=== PATIENT | male | born 1945 | race Caucasian/White ===

== ENCOUNTER 2018-01-09 18:56 | Inpatient (IN) ==
[2018-01-09] MEDS ORDERED: Naloxone 0.4 MG/ML INJ IM ONE (19:06)
[2018-01-09 19:19] LABS: Basophils % 0.2 %; Eosinophils # 0.1 K/mcL (0.0-0.6); Eosinophils % 0.4 %; Hematocrit 37.2 % (37.5-50.1); Immature Granulocytes % 0.4 % (0-4); Lymphocytes # 0.8 K/mcL (0.6-4.6); Lymphocytes % 4.9 %; Mean Corpuscular HGB Conc 32.3 g/dL (31.6-35.5); Mean Corpuscular Hemoglobin 31.3 pg (28.0-33.3); Mean Corpuscular Volume 96.9 fL (83.0-100.0); Mean Platelet Volume 10.2 fL (9.4-12.4); Monocytes # 1.3 K/mcL (0.0-1.3); Neutrophils # 14.4 K/mcL (1.6-8.9); Platelet Count 288 K/mcL (140-400); Red Blood Count 3.84 M/mcL (4.19-5.50); Red Cell Distribution Width 15.1 % (11.5-14.5); Segmented Neutrophils % 86.1 %
[2018-01-09] MEDS: 0.9 % Sodium Chloride 1,000 ML IVC SCH (19:22)
[2018-01-09 19:40] LABS: VBG HCO3 31 mEq/L (21-27); VBG PCO2 52 mmHg (41-51); VBG PH 7.39 pH Units (7.32-7.42); VBG PO2 30 mmHg (25-50)
--- NOTE | 2018-01-09 19:40 | Emergency Department Note ---
Disposition Clinical Impression: Altered mental status Qualifiers: Altered mental status type: somnolence Qualified Code(s): R40.0 - Somnolence Aspiration pneumonia of right upper lobe Qualifiers: Aspiration pneumonia type: unspecified Qualified Code(s): J69.0 - Pneumonitis due to inhalation of food and vomit Disposition: Transfer Short-Term Hosp Referrals: NONE,PCP [Non-Partnered Physician] - Time of Disposition: 22:35 Altered Mental Status HPI - General Time Seen by Provider: 01/09/18 19:03 Source: family Mode of arrival: private vehicle Limitations: altered mental status Nursing Notes Reviewed: Yes Vital Signs Reviewed: Yes - History of Present Illness HPI Narrative: PT DROPPED off at ambulance bay by family . indicates that at 2 pm he was standing at the refrigerator trying to get a glass of milk and nearly fell over forward. She noticed that his hand was tremulous. She did not notice that he was having a seizure or knees never had any seizures. She states that he had been sleeping most of the day and had been very sleepy which is not unusual but he was confused they had to help him back to bed when the squad was called and he refused care apparently according to his he was oriented and could answer all of the questions they ask including the president was so they indicated that they did not agree with his decision but that he had capacity to make the decision to refuse care He vomited after EMS left. And they got him back to bed and he slept much of the day but he was being monitored and continued to be minimally responsive so finally his family member was able to convince him to allow the family to bring him to the emergency department. 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 Records reveal that he is on oxycodone 5 mg 4 times a day when necessary. She states that he manages his own medications complaint: altered mental status Onset (ago): hour(s) Time: 14:00 Timing confirmed by: spouse Consistency of Symptoms: getting worse Context: cancer Associated symptoms: Reports: other (Patient cannot provide any of his own information but his states that he was not complaining of any pain) - Related Data Home Medications Medication Instructions Recorded Confirmed Metoprolol [Lopressor] 25 mg PO BID 08/23/15 01/09/18 Calcium Carbonate/Vitamin D3 1 each PO DAILY 09/21/17 01/09/18 [Calcium 600 + Vit D Tablet] Omeprazole [PriLOSEC] 40 mg PO DAILY 09/21/17 01/09/18 Ondansetron [Zofran] 8 mg PO Q8HR PRN 09/21/17 01/09/18 Fesoterodine Fumarate [Toviaz] 8 mg PO DAILY 01/09/18 01/09/18 Losartan Potassium [Cozaar] 100 mg PO DAILY 01/09/18 01/09/18 Morphine Sulfate [Arymo ER] 30 mg PO BID 01/09/18 01/09/18 Ranitidine HCl [Acid Structural Steel Worker Helper] 150 mg PO HS 01/09/18 01/09/18 Previous Rx's Medication Instructions Recorded Tamsulosin [Flomax] 0.4 mg PO DAILY #30 capsule 07/21/16 Allergies Allergy/AdvReac Type Severity Reaction Status Date / Time acetaminophen AdvReac Weakness Verified 01/09/18 19:42 [From Tylenol-Codeine] codeine AdvReac Weakness Verified 01/09/18 19:42 [From Tylenol-Codeine] Limitations: ROS unobtainable due to patients medical condition Past Medical History - Past Medical History Medical history: Reports: cancer, COPD, hypertension, other Psychiatric history: Reports: no psych history - Social History Smoking Status: Current every day smoker Smokeless Tobacco Status: No Alcohol use: Reports: none Drug use: Reports: none Physical Exam Constitutional: Patient is somnolent on the occasionally opens his eyes. Skin color is pale Appears well hydrated, body habitus thin. Nearly unresponsive Head: Normocephalic and atraumatic. External ear exam normal Nose: Nose normal. Mouth/Throat: Uvula is midline, oropharynx is clear and moist and mucous membranes are normal. Eyes: Conjunctivae nl, extraocular motions and lids are normal. Pupils are equal , round, and reactive to light. Neck: Normal range of motion and phonation normal. Neck supple. Cardiovascular: Normal rate, regular rhythm, normal heart sounds. Pulmonary/Chest: Initial pulse ox 89% without oxygen. 95% on 2 L nasal cannula No Respiratory distress. Respiratory Effort is shallow and breath sounds clear. Abdominal: Soft. Normal appearance and bowel sounds are normal. no masses, no guarding, no rebound Genitals: She had a depends in place which was saturated with urine and leaked throughout his clothing as well. I removed all of that wet clothing and found red rash slightly of the genital region but his testicles and venous do not have evidence of masses or gangrene or redness indicative of any abscess or infection Musculoskeletal: Good distal pulses. Soft compartments. Brisk cap refill. Extremities: Intact peripheral pulses. Slight bilateral ankle Edema. Extremity skin color pale, no calf tenderness or palpable cords. Neurological: GCS 10.Patient is drowsy but opens eyes to verbal and will attempt to follow commands such as opening his mouth. without evidence of obvious motor deficits Skin: Skin is warm, dry and intact. color is pale, cap refill is quick Psychiatric: Patient nonverbal at this time Course - Reevaluation(s) Reevaluation #1: Discussed case with family and they indicate patient is a DNR Time: 20:41 Reevaluation #2: Patient is much more awake. I explained the BiPAP to him which I ordered to improve his elevated CO2. I explained his diagnosis of pneumonia likely aspiration and the need for hospitalization. Family is agreeable to plan. Dr. Martinez has been paged at [phone] 2 determine if he or Dr. Street on-call or willing to take this patient for hospitalization here since he is a DNR in requires probably just stabilizing care. Time: 21:05 Reevaluation #3: disc case w/ dr Hicks and discussed the patient's case, CODE STATUS, vital signs, lab work, and chest x-ray findings. She is non profit job titles who indicates that she would like to call back to floor to see what nurses are working tonight she would also like me to leave the patient on BiPAP for one hour and reassess the CO2 the fourchette accept the patient for admission. Time: 21:20 - Consultations Consultation #1: off bipap now and repeat pulse ox is 95% on 2 l oxygen and capno is 34. disc case w/ dr Hicks who agrees w/ admission and we discussed the patient's labs and orders in detail which she has requested that I write as a courtesy for the patient's admission. I have agreed to do so. Time: 22:33 Vital Signs Temperature 98.9 F 01/09/18 19:31 Pulse Rate 88 01/09/18 19:31 Respiratory Rate 12 01/09/18 19:31 Blood Pressure 196/89 01/09/18 19:31 O2 Sat by Pulse Oximetry 89 01/09/18 19:31 Temperature 98.9 F 01/09/18 19:31 Pulse Rate 95 01/09/18 22:06 Respiratory Rate 16 01/09/18 22:06 Blood Pressure 139/27 01/09/18 22:06 O2 Sat by Pulse Oximetry 100 01/09/18 22:06 Oxygen Delivery Oxygen Delivery Bipap Altered Mental Status - MDM Narrative Medical decision making narrative: Patient's indicates now he actually is back to his usual baseline. She states that he sleeps most of the day every day. Unclear etiology of the episode. My nursing manager who took him out of the car did seem to think that he stiff so certainly seizure is a possibility. CT scan was ordered. My concern is that his symptoms are related to overmedication with opiates But he does have a history of metastatic carcinoma and brain metastases is certainly a possibility as well - Medical Records Medical records reviewed: Yes I reviewed the patient's medical records. - Lab Data Lab results reviewed: Yes I reviewed the patient's lab results. Result diagrams: 01/09/18 19:00 01/09/18 19:00 Lab Results 01/09/18 01/09/18 01/09/18 Range/Units 19:00 19:00 19:00 WBC 16.7 H (4.3-11.1) K/mcL RBC 3.84 L (4.19-5.50) M/mcL Hgb 12.0 L (12.9-16.9) g/dL Hct 37.2 L (37.5-50.1) % MCV 96.9 (83.0-100.0) fL MCH 31.3 (28.0-33.3) pg MCHC 32.3 (31.6-35.5) g/dL RDW 15.1 H (11.5-14.5) % Plt Count 288 (140-400) K/mcL MPV 10.2 (9.4-12.4) fL Immature Gran % 0.4 (0-4) % Seg Neutrophils % 86.1 % Lymphocytes % 4.9 % Monocytes % 8.0 % Eosinophils % 0.4 % Basophils % 0.2 % Neutrophils # 14.4 H (1.6-8.9) K/mcL Lymphocytes # 0.8 (0.6-4.6) K/mcL Monocytes # 1.3 (0.0-1.3) K/mcL Eosinophils # 0.1 (0.0-0.6) K/mcL Basophils # 0.0 (0.0-0.2) K/mcL VBG pH (7.32-7.42) pH Units VBG pCO2 (41-51) mmHg VBG pO2 (25-50) mmHg VBG HCO3 (21-27) mEq/L Sodium 135 L (136-145) mEq/L Potassium 4.5 (3.5-5.1) mEq/L Chloride 99 (98-107) mEq/L Carbon Dioxide 29 (23-29) mEq/L BUN 39 H (8-23) mg/dL Creatinine 1.40 H (0.70-1.30) mg/dL Est GFR ( Amer) > 60 (> 60) Est GFR (Non-Af Amer) 50 L (> 60) BUN/Creatinine Ratio 28 H (6-26) Glucose 94 (70-105) mg/dL POC Glucose 74 (70-99) mg/dL Calculated Osmolality 289 (280-300) Lactic Acid (0.5-2.2) mmol/L Calcium 8.9 (8.6-10.3) mg/dL Total Bilirubin 0.4 (0.3-1.0) mg/dL Direct Bilirubin 0.2 (0.0-0.2) mg/dL Indirect Bilirubin 0.2 (0.0-1.2) mg/dL AST 76 H (13-39) Units/L ALT 71 H (7-52) Units/L Alkaline Phosphatase 127 H (34-104) Units/L Troponin I < 0.03 (< 0.04) ng/mL Serum Total Protein 7.1 (6.4-8.9) g/dL Albumin 3.6 (3.5-5.7) g/dL Globulin 3.5 (2.4-3.5) g/dL Albumin/Globulin Ratio 1.0 L (1.1-2.2) TSH 1.121 (0.340-5.600) mcIU/mL Ethyl Alcohol < 10 (Less than 10) mg/dL 01/09/18 01/09/18 Range/Units 19:00 19:22 WBC (4.3-11.1) K/mcL RBC (4.19-5.50) M/mcL Hgb (12.9-16.9) g/dL Hct (37.5-50.1) % MCV (83.0-100.0) fL MCH (28.0-33.3) pg MCHC (31.6-35.5) g/dL RDW (11.5-14.5) % Plt Count (140-400) K/mcL MPV (9.4-12.4) fL Immature Gran % (0-4) % Seg Neutrophils % % Lymphocytes % % Monocytes % % Eosinophils % % Basophils % % Neutrophils # (1.6-8.9) K/mcL Lymphocytes # (0.6-4.6) K/mcL Monocytes # (0.0-1.3) K/mcL Eosinophils # (0.0-0.6) K/mcL Basophils # (0.0-0.2) K/mcL VBG pH 7.39 (7.32-7.42) pH Units VBG pCO2 52 H (41-51) mmHg VBG pO2 30 (25-50) mmHg VBG HCO3 31 H (21-27) mEq/L Sodium (136-145) mEq/L Potassium (3.5-5.1) mEq/L Chloride (98-107) mEq/L Carbon Dioxide (23-29) mEq/L BUN (8-23) mg/dL Creatinine (0.70-1.30) mg/dL Est GFR ( Amer) (> 60) Est GFR (Non-Af Amer) (> 60) BUN/Creatinine Ratio (6-26) Glucose (70-105) mg/dL POC Glucose (70-99) mg/dL Calculated Osmolality (280-300) Lactic Acid 0.8 (0.5-2.2) mmol/L Calcium (8.6-10.3) mg/dL Total Bilirubin (0.3-1.0) mg/dL Direct Bilirubin (0.0-0.2) mg/dL Indirect Bilirubin (0.0-1.2) mg/dL AST (13-39) Units/L ALT (7-52) Units/L Alkaline Phosphatase (34-104) Units/L Troponin I (< 0.04) ng/mL Serum Total Protein (6.4-8.9) g/dL Albumin (3.5-5.7) g/dL Globulin (2.4-3.5) g/dL Albumin/Globulin Ratio (1.1-2.2) TSH (0.340-5.600) mcIU/mL Ethyl Alcohol (Less than 10) mg/dL - Radiology Data Radiology results reviewed: Yes I reviewed the patient's radiology results. Portable chest x-ray shows right upper lobar infiltrate and possibly of aspiration pneumonia CT scan brain per radiology negative for acute abnormalities - EKG Data EKG attestation: Yes I reviewed and interpreted this EKG. EKG results narrative: EKG shows sinus rate of 104. Peaked T waves. No evidence of acute ST-T wave changes. TPA Checklist - LKW: 3-4.5 hrs Add. Warnings/Precautions Patient/family understanding: The patient/family members have been counseled and understood the risk, benefit , and alternatives of treatment. Critical Care Time Critical Care Time: Yes Attestation: Critical care provided for this patient of which 44 minutes were spent on critical care including at patient bedside, record review, evaluation of results , conversation with consultants and decision making and0 minutes for procedures There was imminent failure of an organ system which required critical intervention to prevent clinically significant progression of life-threatening deterioration of the patient's condition to the point of disability or
[2018-01-09 19:49] LABS: Thyroid Stimulating Hormone 1.121 mcIU/mL (0.340-5.600)
[2018-01-09 19:51] LABS: Troponin I < 0.03 ng/mL (< 0.04)
[2018-01-09 19:52] LABS: Alanine Aminotransferase 71 Units/L (7-52); Albumin 3.6 g/dL (3.5-5.7); Alkaline Phosphatase 127 Units/L (34-104); Aspartate Amino Transferase 76 Units/L (13-39); BUN/Creatinine Ratio 28 (6-26); Bilirubin,Direct 0.2 mg/dL (0.0-0.2); Bilirubin,Indirect 0.2 mg/dL (0.0-1.2); Bilirubin,Total 0.4 mg/dL (0.3-1.0); Blood Urea Nitrogen 39 mg/dL (8-23); Calcium 8.9 mg/dL (8.6-10.3); Carbon Dioxide 29 mEq/L (23-29); Chloride 99 mEq/L (98-107); Globulin 3.5 g/dL (2.4-3.5); Glucose 94 mg/dL (70-105); Osmolality,Calculated 289 (280-300); Potassium 4.5 mEq/L (3.5-5.1); Sodium 135 mEq/L (136-145); Total Protein 7.1 g/dL (6.4-8.9); eGFR For African Americans > 60 (> 60); eGFR For Non-African Americans 50 (> 60)
[2018-01-09] MEDS ORDERED: Piperacillin/Tazobactam 3.375 GM in 0.9 % Sodium Chloride Mini Bag 100 ML IVPB ONE (20:19)
[2018-01-09 20:35] LABS: Ethanol < 10 mg/dL (Less than 10)
[2018-01-09 22:35] LABS: Bilirubin,Urine Negative (Negative); Blood,Urine Trace-lysed (Negative); Clarity,Urine Clear (Clear); Color,Urine Yellow (Yellow); Glucose,Urine (UA) Normal (Normal); Ketones,Urine Negative (Negative); Leukocyte Esterase,Urine Negative (Negative); Nitrite,Urine Negative (Negative); PH,Urine 6.5 pH Units (5.0-8.0); Protein,Urine Negative (Neg-Trace); Specific Gravity,Urine 1.015 (1.010-1.025); Urobilinogen,Urine Normal (Normal)
[2018-01-09 22:41] LABS: Bacteria,Urine Few per hpf (None-Few); RBC,Urine 0-3 per hpf (0-3); Squamous Epithelial Cell,Urine Few per lpf (None-Few)
[2018-01-09 22:50] LABS: Amphetamine Screen,Urine Negative ng/mL (Cutoff=1000); Barbiturate Screen,Urine Negative ng/mL (Cutoff=200); Benzodiazepines Screen,Urine Negative ng/mL (Cutoff=200); Cannabinoid Screen,Urine Negative ng/mL (Cutoff = 50); Cocaine Screen,Urine Negative ng/mL (Cutoff= 300); Opiate Screen,Urine Positive ng/mL (Cutoff=300); Phencyclidine Screen,Urine Negative ng/mL (Cutoff=25)
[2018-01-09] MEDS ORDERED: 0.9 % Sodium Chloride 1,000 ML IVC SCH (23:29)
[2018-01-09] MEDS ORDERED: Acetaminophen 325 MG TABLET PO PRN (23:29)
[2018-01-09] MEDS ORDERED: Ondansetron ODT 4 MG TAB.RAPDIS PO PRN (23:29)
[2018-01-09] MEDS ORDERED: Naloxone 0.4 MG/ML INJ IVP PRN (23:29)
[2018-01-10] MEDS: 0.9 % Sodium Chloride 1,000 ML IVC SCH ×3 (00:48→19:30)
[2018-01-10 05:04] LABS: Basophils % 0.2 %; Eosinophils # 0.1 K/mcL (0.0-0.6); Eosinophils % 0.3 %; Hematocrit 30.2 % (37.5-50.1); Hemoglobin 9.9 g/dL (12.9-16.9); Immature Granulocytes % 0.8 % (0-4); Lymphocytes # 1.9 K/mcL (0.6-4.6); Lymphocytes % 7.4 %; Mean Corpuscular HGB Conc 32.8 g/dL (31.6-35.5); Mean Corpuscular Hemoglobin 31.5 pg (28.0-33.3); Mean Corpuscular Volume 96.2 fL (83.0-100.0); Mean Platelet Volume 9.9 fL (9.4-12.4); Monocytes # 2.6 K/mcL (0.0-1.3); Monocytes % 9.9 %; Platelet Count 243 K/mcL (140-400); Red Blood Count 3.14 M/mcL (4.19-5.50); Segmented Neutrophils % 81.4 %
[2018-01-10 05:14] LABS: INR 1.1; Prothrombin Time 12.4 Seconds (9.4-12.1)
[2018-01-10 05:17] LABS: Activated Partial Thrombo Time 32.6 Seconds (26.0-36.0)
[2018-01-10 05:24] LABS: BUN/Creatinine Ratio 26 (6-26); Blood Urea Nitrogen 33 mg/dL (8-23); Carbon Dioxide 25 mEq/L (23-29); Chloride 107 mEq/L (98-107); Glucose 91 mg/dL (70-105); Osmolality,Calculated 293 (280-300); Potassium 3.7 mEq/L (3.5-5.1); Sodium 138 mEq/L (136-145); eGFR For African Americans > 60 (> 60); eGFR For Non-African Americans 56 (> 60)
[2018-01-10 05:38] LABS: Basophils # 0.1 K/mcL (0.0-0.2)
[2018-01-10] MEDS: Piperacillin/Tazobactam 3.375 GM in 0.9 % Sodium Chloride Mini Bag 100 ML IVPB SCH ×3 (05:39→21:24)
[2018-01-10] MEDS: *HR* Enoxaparin 40 MG/0.4 ML SYRINGE SQ SCH (05:40)
[2018-01-10 05:47] LABS: Platelet Estimate Normal (Normal)
[2018-01-10] MEDS ORDERED: *HR* Morphine Sulfate SR (12 HR) 15 MG TABLET.ER PO SCH (06:00)
--- NOTE | 2018-01-10 08:46 | Internal Med History&Physical ---
Date of Encounter: 01/10/18 Time of Encounter: 08:45 Assessment and Plan (1) Aspiration pneumonia of right upper lobe Current visit: Yes Status: Acute Possibly due to morphine ingestion. He is on Zosyn his white count has increased we will continue to follow. We will wean oxygen as tolerated give duo nebs Qualifiers: Aspiration pneumonia type: unspecified Qualified Code(s): J69.0 - Pneumonitis due to inhalation of food and vomit (2) Benign essential HTN Current visit: Yes Status: Acute will continue home medication (3) Mixed hyperlipidemia Current visit: Yes Status: Acute (4) COPD (chronic obstructive pulmonary disease) Current visit: Yes Status: Acute will wean oxygen and add duonebs Qualifiers: COPD type: unspecified COPD Qualified Code(s): J44.9 - Chronic obstructive pulmonary disease, unspecified (5) Prostate cancer Current visit: Yes Status: Acute (6) Stable burst fracture of first lumbar vertebra Current visit: Yes Status: Acute We will stop his narcotic pain medicine as he does not appear to get on a regular basis and this is likely the reason for his decreased mental status. He did respond to Narcan nebulizer in the ER Qualifiers: Encounter type: sequela Fracture type: closed Qualified Code(s): S32.011S - Stable burst fracture of first lumbar vertebra, sequela (7) Altered mental status Current visit: Yes Status: Acute Quite possibly due to ingesting his narcotics from home I pulled as well as reports his Lasix oxycodone filled was in April. His last morphine sulfate of a decreased dose of 50 mg is filled in September. He is not on this long- term he does not take it on a daily basis. He likely has a decreased tolerance. He was given Narcan nebulizer in the ER and he did respond. We will stop his narcotic pain medicine. He had a head CT that did not show any acute disease. Qualifiers: Altered mental status type: unspecified Qualified Code(s): R41.82 - Altered mental status, unspecified (8) GERD (gastroesophageal reflux disease) Current visit: Yes Status: Acute We will continue home medications Qualifiers: Esophagitis presence: esophagitis presence not specified Qualified Code(s) : K21.9 - Gastro-esophageal reflux disease without esophagitis (9) Accidental overdose Current visit: Yes Status: Acute He had not taken his morphine sulfate in quite some time had a headache and took 1 yesterday. It made him somnolent to the point where he had respiratory distress CO2 retention. We will stop this medicine discussed this with patient. Qualifiers: Encounter type: initial encounter Qualified Code(s): T50.901A - Poisoning by unspecified drugs, medicaments and biological substances, accidental ( unintentional), initial encounter (10) DNR (do not resuscitate) Current visit: Yes Status: Acute Discussed with patient CODE STATUS he does not want intubation he does not want CPR Internal Medicine - H&P: HPI Chief complaint: unresponsive Admitted From: Home Plans for Post Hospital Care: Home History of present illness: Mr. Benito is a 72 year old male Who presented to the emergency room after he was at home with decreased mental status changes and shortness of breath. The emergency room he was difficult to arouse unresponsive. He was given a Narcan nebulizer with some improvement in his mental status. He also had an elevated CO2. He was started on BiPAP and was on BiPAP for an hour which did increase his awakeness. He was weaned off BiPAP to 2 L nasal cannula. Breathing is been stable since. His chest x-ray in the emergency room showed a right upper lobe infiltrate. This felt to be aspiration due to his decreased mental status he was given Zosyn. His white count in the ER was 16,000 it is over 20,000 today. Upon pulling his orders reported does not appear that he gets his narcotics on a regular basis he had a film in April of oxycodone and none since. He had a fill of morphine sulfate at a decreased dose of 15 mg twice a day and that was last filled in September he has not had any narcotics since his drug screen in the emergency room was positive for narcotics so it is possible that he had not been taking his medicines and then he did take it and that decreased his mental status. He was given a dysphagia evaluation at the bedside by nursing which she passed so we will start him on soft mechanical diet. He does not remember much of what happened yesterday although he did say that he had a headache yesterday and took one of his morphine sulfate he had not been taking in quite some time. That is really all that he remembers. He said he had emesis maybe a month ago but it is hard for him to remember he says he has not been coughing he has not had a fever. Past Med Surg Social Fam HX - Past Medical History Medical history: cancer, COPD, hyperlipidemia, hypertension, other (lumbar vertebral fracture, malnutrition, hx of migraines) Additional medical history: PROSTATE CA Psychiatric history: no psych history - Past Surgical History Surgical History: appendectomy, cholecystectomy, other (prostate cancer radiation seeds, colonoscopy 2012) - Social History Smoking Status: Current every day smoker Smokeless Tobacco Status: No Alcohol use: none Drug use: none - Family History Father Living Status: Hx Family Neurologic Disorders: Yes (cva) Mother Living Status: Hx Family Cardiac Disorders: Yes (cad) Sister Living Status: Hx Family Cancer: Yes (breast) Internal Medicine - H&P: Meds Metoprolol [Lopressor] 25 mg PO BID 08/23/15 [History] Tamsulosin [Flomax] 0.4 mg PO DAILY #30 capsule 07/21/16 [Rx] Calcium Carbonate/Vitamin D3 [Calcium 600 + Vit D Tablet] 1 each PO DAILY [History] Omeprazole [PriLOSEC] 40 mg PO DAILY 09/21/17 [History] Ondansetron [Zofran] 8 mg PO Q8HR PRN 09/21/17 [History] Fesoterodine Fumarate [Toviaz] 8 mg PO DAILY 01/09/18 [History] Losartan Potassium [Cozaar] 100 mg PO DAILY 01/09/18 [History] Morphine Sulfate [Arymo ER] 15 mg PO BID PRN 01/09/18 [History] Ranitidine HCl [Acid Lathe Mechanic] 150 mg PO HS 01/09/18 [History] 3 Allergy/AdvReac Type Severity Reaction Status Date / Time acetaminophen AdvReac Weakness Verified 01/09/18 19:42 [From Tylenol-Codeine] codeine AdvReac Weakness Verified 01/09/18 19:42 [From Tylenol-Codeine] All Systems PM: A 10-system review of systems was performed and is negative for pertinent findings except as documented above in the HPI. - Constitutional Constitutional: fatigue, falls (But he cannot really remember his last one), no chills, no fever(s), no night sweats, no weakness - EENT Eyes: no change in vision Nose, mouth and throat: no sore throat - Cardiovascular Cardiovascular ROS IM: lightheadedness (Occasionally but he cannot over the last time it happened), no chest pain, no edema, no palpitations, no syncope - Respiratory Respiratory: no cough, no dyspnea, no wheezing - Gastrointestinal Gastrointestinal: nausea (Last time was a month ago he thinks maybe), vomiting ( Last time was a month ago he thinks), no constipation, no diarrhea, no fecal incontinence, no hematemesis, no hematochezia, no loose stools - Genitourinary Genitourinary ROS male: urinary incontinence, urinary urgency, no hematuria - Integumentary Integumentary IM: no pruritus, no rash - Constitutional Vitals: Temp Pulse Resp BP Pulse Ox 98.4 F 79 16 144/78 96 01/10/18 07:21 01/10/18 07:21 01/10/18 07:21 01/10/18 07:21 01/10/18 07:21 General appearance: Present: A&O X 2 (Name Place year month not oriented to day of the week or date), no acute distress - Head Head exam: Present: atraumatic, normocephalic - Neck Neck exam general surgery: Present: supple, trachea midline. Absent: lymphadenopathy, tenderness - Respiratory Respiratory exam: Present: rhonchi (Right upper lobe) - Cardiovascular Cardiovascular exam: Present: RRR. Absent: systolic murmur - GI/Abdominal GI/Abdominal exam: Present: normal bowel sounds, soft, tenderness, no peritoneal signs. Absent: distended, guarding, mass, rebound - Extremities Exam Extremities exam: Present: warm. Absent: cyanotic, pedal edema - Neurological Exam Neurological exam: Present: alert. Absent: CN II-XII intact, speech deficit - Skin Skin exam: Present: dry, warm. Absent: rash Internal Med - H&P Results - Labs CBC & Chem 7: 01/10/18 04:52 01/10/18 04:52 Labs: Short CBC 01/10/18 Range/Units 04:52 WBC 25.8 H D (4.3-11.1) K/mcL Hgb 9.9 L D (12.9-16.9) g/dL Hct 30.2 L (37.5-50.1) % Plt Count 243 (140-400) K/mcL Neutrophils # 21.0 H (1.6-8.9) K/mcL BMP 01/10/18 04:52 Sodium 138 Potassium 3.7 Chloride 107 Carbon Dioxide 25 BUN 33 H Creatinine 1.27 Glucose 91 Calcium 8.0 L
[2018-01-10] MEDS ORDERED: Ipratropium/Albuterol Neb 3 ML IH PRN (08:57)
[2018-01-10] MEDS ORDERED: Famotidine 20 MG TABLET PO SCH (21:00)
[2018-01-11] MEDS: Piperacillin/Tazobactam 3.375 GM in 0.9 % Sodium Chloride Mini Bag 100 ML IVPB SCH ×2 (05:20→12:50)
[2018-01-11] MEDS: *HR* Enoxaparin 40 MG/0.4 ML SYRINGE SQ SCH (05:20)
[2018-01-11 06:15] LABS: Albumin 2.6 g/dL (3.5-5.7); Albumin/Globulin Ratio 0.9 (1.1-2.2); Bilirubin,Direct 0.1 mg/dL (0.0-0.2); Bilirubin,Indirect 0.3 mg/dL (0.0-1.2); Bilirubin,Total 0.4 mg/dL (0.3-1.0); Globulin 2.8 g/dL (2.4-3.5); Total Protein 5.4 g/dL (6.4-8.9)
[2018-01-11 06:16] LABS: Magnesium 1.8 mg/dL (1.6-2.6); Phosphorous 2.9 mg/dL (2.7-4.5)
[2018-01-11 06:27] LABS: Thyroid Stimulating Hormone 1.62 mcIU/mL (0.340-5.600)
--- NOTE | 2018-01-11 08:12 | Electrocardiograph Report ---
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
--- NOTE | 2018-01-11 08:34 | Internal Med Progress Note ---
Date of Encounter: 01/11/18 Time of Encounter: 08:34 - Assessment and plan (1) Aspiration pneumonia of right upper lobe Current Visit: Yes Status: Acute Qualifiers: Aspiration pneumonia type: unspecified Qualified Code(s): J69.0 - Pneumonitis due to inhalation of food and vomit (2) Benign essential HTN Current Visit: Yes Status: Acute (3) Mixed hyperlipidemia Current Visit: Yes Status: Acute (4) COPD (chronic obstructive pulmonary disease) Current Visit: Yes Status: Acute Qualifiers: COPD type: unspecified COPD Qualified Code(s): J44.9 - Chronic obstructive pulmonary disease, unspecified (5) Prostate cancer Current Visit: Yes Status: Acute (6) Stable burst fracture of first lumbar vertebra Current Visit: Yes Status: Acute Qualifiers: Encounter type: sequela Fracture type: closed Qualified Code(s): S32.011S - Stable burst fracture of first lumbar vertebra, sequela (7) Altered mental status Current Visit: Yes Status: Acute Qualifiers: Altered mental status type: unspecified Qualified Code(s): R41.82 - Altered mental status, unspecified (8) GERD (gastroesophageal reflux disease) Current Visit: Yes Status: Acute Qualifiers: Esophagitis presence: esophagitis presence not specified Qualified Code(s) : K21.9 - Gastro-esophageal reflux disease without esophagitis (9) Accidental overdose Current Visit: Yes Status: Acute Qualifiers: Encounter type: initial encounter Qualified Code(s): T50.901A - Poisoning by unspecified drugs, medicaments and biological substances, accidental ( unintentional), initial encounter (10) DNR (do not resuscitate) Current Visit: Yes Status: Acute - Constitutional Vitals: Temp Pulse Resp BP Pulse Ox 98.3 F 76 18 187/80 94 01/11/18 08:02 01/11/18 08:02 01/11/18 08:02 01/11/18 08:02 01/11/18 08:02 General appearance: Present: A&O X 2 (Name Place year month not oriented to day of the week or date), no acute distress Internal Medicine: Result - Labs CBC & Chem 7: 01/10/18 04:52 01/10/18 04:52 Labs: Liver Function 01/11/18 Range/Units 05:30 Total Bilirubin 0.4 (0.3-1.0) mg/dL Direct Bilirubin 0.1 (0.0-0.2) mg/dL AST 20 (13-39) Units/L ALT 29 (7-52) Units/L Alkaline Phosphatase 71 (34-104) Units/L Albumin 2.6 L (3.5-5.7) g/dL - ABG Interpretation ABG results: PT/INR, D-dimer PT 12.4 Seconds (9.4-12.1) H 01/10/18 04:52 Consult Discharge Plan - Plan
[2018-01-11] MEDS ORDERED: Multivit/Ca/Min/Fe/FA 1 TAB TABLET PO SCH (09:00)
[2018-01-11 09:04] LABS: Hepatitis A Antibody IgM Nonreactive (Nonreactive); Hepatitis B Core IgM Nonreactive (Nonreactive); Hepatitis B Surface Antigen Nonreactive (Nonreactive)
[2018-01-11 09:58] LABS: Basophils % 0.2 %; Eosinophils # 0.2 K/mcL (0.0-0.6); Eosinophils % 1.5 %; Hematocrit 29.7 % (37.5-50.1); Hemoglobin 9.5 g/dL (12.9-16.9); Immature Granulocytes % 0.3 % (0-4); Lymphocytes % 8.3 %; Mean Corpuscular Hemoglobin 31.4 pg (28.0-33.3); Mean Platelet Volume 10.2 fL (9.4-12.4); Monocytes # 1.3 K/mcL (0.0-1.3); Monocytes % 11.4 %; Neutrophils # 9.2 K/mcL (1.6-8.9); Platelet Count 218 K/mcL (140-400); Red Blood Count 3.03 M/mcL (4.19-5.50); Red Cell Distribution Width 15.2 % (11.5-14.5); Segmented Neutrophils % 78.3 %
--- NOTE | 2018-01-11 10:03 | Electrocardiograph Report ---
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
[2018-01-11 11:26] VITALS: BP 149/66
--- NOTE | 2018-01-11 14:19 | Discharge Summary ---
Orders not resulted at time of discharge: Pending orders 01/11/18 05:30 Hepatitis Prof.(Routine A,B,C) AM 0400 Date of Encounter: 01/11/18 Time of Encounter: 08:30 - Discharge Diagnosis (1) Aspiration pneumonia of right upper lobe Priority: Primary Status: Acute Comments: His blood cultures have been negative he did receive IV Zosyn his white count got up to 25,000 but it was in the normal range on the day of discharge. He has remained afebrile. He has been weaned off oxygen. He was initially on BiPAP in the emergency room. He is greatly improved he feels ready to go home. Physical therapy did a physical therapy evaluation he felt he was a little bit deconditioned so they recommended home PT so we will go ahead and arrange that with home health care. We will send him home on Augmentin he is to follow- up in the office on . Likely occurred as a result of him accidentally overdosing on his home morphine and he had quite some time but then took it on Thursday. Passive bedside dysphagia evaluation with the nursing staff. Qualifiers: Aspiration pneumonia type: unspecified Qualified Code(s): J69.0 - Pneumonitis due to inhalation of food and vomit (2) Altered mental status Priority: Secondary Status: Acute Comments: This was due to taking morphine that he had not taken in quite some time and then he took 15-30 mg of his home medication. He was unresponsive he did respond to Narcan nebulizer. Discussed with him that he needs to probably stop this medication he had had his last fill in September 4 months ago a 30 pills and has not had any fills since his tolerance is definitely down he also has oxycodone at home. He took it for headache discussed probably was not the best use of the medication and that it was only for severe pain. Discussed that this high dose of morphine was not a when necessary dose but more chronic maintenance dose and if he was not taking on a regular basis we should not continue that. Qualifiers: Altered mental status type: unspecified Qualified Code(s): R41.82 - Altered mental status, unspecified (3) Benign essential HTN Priority: Secondary Status: Acute Comments: He was on his home medication. (4) Mixed hyperlipidemia Priority: Secondary Status: Acute Comments: Not an issue this admission (5) COPD (chronic obstructive pulmonary disease) Priority: Secondary Status: Acute Comments: He did receive DuoNeb's here. He was sent wheezing his lungs had some rhonchi in the right upper lobe otherwise clear so he was discharged home on Augmentin. Qualifiers: COPD type: unspecified COPD Qualified Code(s): J44.9 - Chronic obstructive pulmonary disease, unspecified (6) Prostate cancer Priority: Secondary Status: Acute Comments: That was not a factor in this admission (7) Stable burst fracture of first lumbar vertebra Priority: Secondary Status: Acute Comments: Discussed with him that since his last refills of the morphine were 4 months ago in September that he has a decreased tolerance that he should not take that most likely why he had the unresponsiveness with and that is why he aspirated. Qualifiers: Encounter type: sequela Fracture type: closed Qualified Code(s): S32.011S - Stable burst fracture of first lumbar vertebra, sequela (8) GERD (gastroesophageal reflux disease) Priority: Secondary Status: Acute Qualifiers: Esophagitis presence: esophagitis presence not specified Qualified Code(s) : K21.9 - Gastro-esophageal reflux disease without esophagitis (9) Accidental overdose Priority: Secondary Status: Acute Comments: Secondary to him taking morphine that he had not been on for 4 months. He did respond to Narcan he did have to end up on BiPAP because of his unresponsiveness and CO2 retention. Discussed that he should not take morphine 15-30 mg as a when necessary dose its more long-term chronic use rebuild up a tolerance. No was made in the chart to stop his morphine in the outpatient Qualifiers: Encounter type: initial encounter Qualified Code(s): T50.901A - Poisoning by unspecified drugs, medicaments and biological substances, accidental ( unintentional), initial encounter (10) DNR (do not resuscitate) Priority: Secondary Status: Acute Hospital course: Mr. Benito is a 72 year old male Presented to the emergency room unresponsive. He had had a headache on Thursday he took his morphine sulfate that he did not normally take on a regular basis his last fill was in September. He was unresponsive he was retaining CO2 the end up on BiPAP in the emergency room he did respond to Narcan nebulizer and has been awake alert and oriented since. He did have a CT in the ER that did not show any acute changes he did have a bump in his liver functions and hepatitis panel was sent off. That is still pending. His blood cultures are negative his white count has gone to normal he was on IV Zosyn for aspiration pneumonia in the right upper lobe that he had with this. He has been afebrile we will send him home on by mouth Augmentin. Discussed with him the dangers of not taking morphine for quite some time and then taking a dose of 15-30 mg. Discussed that he should not be taking that anymore made in his outpatient chart to stop that he still does have some oxycodone 5 mg at home. Discussed that he just had a headache which is why he took that and probably not the best use of that medication. - Time Spent with Patient Total time spent providing and/or coordinating discharge services: - Discharge Medications Prescriptions: Amoxicillin/Clavulanate [Augmentin] 875 mg PO BIDWM #20 tablet Ferrous Sulfate 325 mg PO BIDWM 1 Days #60 tablet Multivit/Ca/Min/Fe/FA [Thera M Plus] 1 tab PO DAILY #30 tablet Home Medications: Metoprolol [Lopressor] 25 mg PO BID 08/23/15 [History] Tamsulosin [Flomax] 0.4 mg PO DAILY #30 capsule 07/21/16 [Rx] Calcium Carbonate/Vitamin D3 [Calcium 600 + Vit D Tablet] 1 each PO DAILY [History] Omeprazole [PriLOSEC] 40 mg PO DAILY 09/21/17 [History] Fesoterodine Fumarate [Toviaz] 8 mg PO DAILY 01/09/18 [History] Losartan Potassium [Cozaar] 100 mg PO DAILY 01/09/18 [History] Ranitidine HCl [Acid Cafeteria Cashier] 150 mg PO HS 01/09/18 [History] Amoxicillin/Clavulanate [Augmentin] 875 mg PO BIDWM #20 tablet 01/11/18 [Rx] Ferrous Sulfate 325 mg PO BIDWM 1 Days #60 tablet 01/11/18 [Rx] Ipratropium/Albuterol Neb [Duoneb] 3 ml IH [id number] PRN inhsol 01/11/18 [Rx] Multivit/Ca/Min/Fe/FA [Thera M Plus] 1 tab PO DAILY #30 tablet 01/11/18 [Rx] Allergies/Adverse Reactions: 3 Allergy/AdvReac Type Severity Reaction Status Date / Time acetaminophen AdvReac Weakness Verified 01/09/18 19:42 [From Tylenol-Codeine] codeine AdvReac Weakness Verified 01/09/18 19:42 [From Tylenol-Codeine] Date of admission: 01/09/18 22:56 Primary care physician: Betzaida Louis CNP Consults: 01/10/18 00:19 Consult to Nutrition [CONS] Routine Comment: Consulting Provider: NUTRITION Reason for Dietary Consult: MST Score 01/11/18 09:35 Consult to Physical Therapy [CONS] Routine Comment: Evaluate, develop and implement POC Reason for Consult: patient uses a cane at home but has not ambulated while here. Dr Hicks wants patient to ambulate with physican theapy prior to discharge Does patient have active BEDREST order?: No Is patient medically & hemodynamically stable?: Yes Patient assessed for mobility or mobilized this visit?: No - Constitutional Vitals: Temp Pulse Resp BP Pulse Ox 97.9 F 54 16 149/66 96 01/11/18 11:24 01/11/18 12:59 01/11/18 12:59 01/11/18 12:59 01/11/18 12:59 General appearance: Present: A&O X 2 (Name Place year month not oriented to day of the week or date), no acute distress - Head Head exam: Present: atraumatic, normocephalic - Neck Neck exam general surgery: Present: supple, trachea midline. Absent: lymphadenopathy - Respiratory Respiratory exam: Present: rhonchi (Right upper lobe) - Cardiovascular Cardiovascular exam: Present: RRR, +S1, +S2. Absent: systolic murmur - GI/Abdominal GI/Abdominal exam: Present: normal bowel sounds, soft, no peritoneal signs. Absent: distended, guarding, mass, tenderness - Extremities Exam Extremities exam: Present: normal capillary refill, warm. Absent: mottling, pedal edema - Skin Skin exam: Present: dry, warm. Absent: rash - Patient Status Disposition: Home, Self-Care Condition: Good Functional capacity at discharge: independent ambulation Overall status at discharge: patient is progressing back to baseline - Discharge Instructions Instructions: Chronic Obstructive Pulmonary Disease (DC) Follow Up With: Betzaida Louis CNP [Primary Care Provider] - Veda Hicks MD [Partnered Physician] - 01/14/18 10:30 am Forms: ED Satisfaction Letter Additional Instructions: do not take the morphine anymore. Your tolerance has gone down and taking the morphine on Thursday is the reason you had trouble breathing and were unresponsive. - Diet and Activity Activity: increase activity as tolerated Diet: low fat, low cholesterol, low salt diet
--- NOTE | 2018-01-11 14:36 | Physician Discharge Referral ---
Home Health/Hosp Referral Info Transfer to: Home Health - Diagnosis (1) Aspiration pneumonia of right upper lobe Priority: Primary Status: Acute (2) Benign essential HTN Priority: Secondary Status: Acute (3) Mixed hyperlipidemia Priority: Secondary Status: Acute (4) COPD (chronic obstructive pulmonary disease) Priority: Secondary Status: Acute (5) Prostate cancer Priority: Secondary Status: Acute (6) Stable burst fracture of first lumbar vertebra Priority: Secondary Status: Acute (7) Altered mental status Priority: Secondary Status: Acute (8) GERD (gastroesophageal reflux disease) Priority: Secondary Status: Acute (9) Accidental overdose Priority: Secondary Status: Acute (10) DNR (do not resuscitate) Priority: Secondary Status: Acute - Respiratory Orders Smoking Cessation: Smoking cessation has been advised. For more information, call the [employer] Tobacco Quit Line at 7-658-MIDU-NOW. - Diet/Nutrition Diet/Nutrition Orders: Regular - Activity Activity Orders: Up ad elijah, Ambulate - Services Needed Following services are medically necessary services: Nursing, Home Health Aide, Physical Therapy, Occupational Therapy - Transfer Medications Prescriptions: Amoxicillin/Clavulanate [Augmentin] 875 mg PO BIDWM #20 tablet Ferrous Sulfate 325 mg PO BIDWM 1 Days #60 tablet Multivit/Ca/Min/Fe/FA [Thera M Plus] 1 tab PO DAILY #30 tablet Home Medications: Metoprolol [Lopressor] 25 mg PO BID 08/23/15 [History] Tamsulosin [Flomax] 0.4 mg PO DAILY #30 capsule 07/21/16 [Rx] Calcium Carbonate/Vitamin D3 [Calcium 600 + Vit D Tablet] 1 each PO DAILY [History] Omeprazole [PriLOSEC] 40 mg PO DAILY 09/21/17 [History] Fesoterodine Fumarate [Toviaz] 8 mg PO DAILY 01/09/18 [History] Losartan Potassium [Cozaar] 100 mg PO DAILY 01/09/18 [History] Ranitidine HCl [Acid Youth Pastor] 150 mg PO HS 01/09/18 [History] Amoxicillin/Clavulanate [Augmentin] 875 mg PO BIDWM #20 tablet 01/11/18 [Rx] Ferrous Sulfate 325 mg PO BIDWM 1 Days #60 tablet 01/11/18 [Rx] Ipratropium/Albuterol Neb [Duoneb] 3 ml IH [id number] PRN inhsol 01/11/18 [Rx] Multivit/Ca/Min/Fe/FA [Thera M Plus] 1 tab PO DAILY #30 tablet 01/11/18 [Rx] Allergies/Adverse Reactions: 3 Allergy/AdvReac Type Severity Reaction Status Date / Time acetaminophen AdvReac Weakness Verified 01/09/18 19:42 [From Tylenol-Codeine] codeine AdvReac Weakness Verified 01/09/18 19:42 [From Tylenol-Codeine] Certification: Further, I certify that my clinical findings support that this patient is homebound (i.e. absences from home require considerable and taxing effort and are for medical reasons or adventism services or infrequently or short duration when for other reasons) because: Homebound Reason: Patient requires assistance of a person or device to safely leave home (fall risk) Attestation: My signature below is to certify that this patient is under my care and that I, or nurse practitioner, or a physician's junior assistant manager working with me, has a face-to -face encounter with this patient.
[2018-01-11 15:59] LABS: Hepatitis C Virus Antibody Nonreactive (Nonreactive)
== END 2018-01-11 16:20 | disposition home or self-care (01) | DRG 178 ==
LOC: EMEROOGRE 18:56 → INPGRE 22:56
PROVIDERS: ADMIT Family Medicine; ATTEND Family Medicine